=== PATIENT | female | born 1980 | race Caucasian/White ===

== ENCOUNTER 2017-07-03 11:41 | Emergency (ER) | payer MEDICAID ==
[~2017-07-03] VITALS: Ht 167.6 cm; Wt 59.0 kg
[2017-07-03 11:54] VITALS: BP 123/85
== END 2017-07-03 13:00 | disposition home or self-care (01) ==
LOC: ER 11:41
DX: K02.9 Dental caries, unspecified (principal); F17.210 Nicotine dependence, cigarettes, uncomplicated; Z88.8 Allergy status to other drugs, medicaments and biological substances

== ENCOUNTER 2018-04-04 15:20 | Emergency (ER) | payer MEDICAID, OTHER ==
[~2018-04-04] VITALS: Ht 167.6 cm; Wt 59.0 kg
[2018-04-04 16:06] VITALS: BP 114/65
[2018-04-04] MEDS ORDERED: HYDROcodone-ACET 7.5/325MG TAB PO ONE (16:30)
== END 2018-04-04 16:39 | disposition home or self-care (01) ==
LOC: ER 15:26
DX: R07.81 Pleurodynia (principal); F17.210 Nicotine dependence, cigarettes, uncomplicated; Z88.8 Allergy status to other drugs, medicaments and biological substances; Z76.0 Encounter for issue of repeat prescription